=== PATIENT | female | born 1970 | race Caucasian/White ===

== ENCOUNTER → 2019-08-12 12:59 | Outpatient (CLI) | payer BC, SELFPAY ==
--- NOTE | ~2019-08-12 | US_ITS ---
EXAMINATION: US transvaginal DATE: 08/12/2019 13:43 INDICATION: Check IUD positioning. Misplaced IUD. Comparison:No prior studies for comparison. TECHNIQUE: Multiple transabdominal and endovaginal sonographic images of the pelvis performed. FINDINGS: The uterus measures 7.8 x 4.1 x 5.9 cm. IUD in expected position in the endometrium. The en dometrial complex measures 9 mm. The right ovary is not visualized. Left ovary contains a 2.4 cm cyst. There is no free fluid in the pelvis. There are no abnormal masses seen on either side. IMPRESSION: 1. IUD in expected position in the endometrium. 2: 2.4 cm left ovarian cyst. Reviewed, dictated and finalized at location A. 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
== END ==
PROVIDERS: Visit Provider Obstetrics & Gynecology
DX: T83.32XA Displacement of intrauterine contraceptive device, initial encounter (principal); Z30.431 Encounter for routine checking of intrauterine contraceptive device; N83.202 Unspecified ovarian cyst, left side
CPT/HCPCS: 76830

== ENCOUNTER 2021-12-04 11:06 | Outpatient (CLI) | payer BC, SELFPAY ==
[2021-12-04 11:34] LABS: Hematocrit 38.7 % (37.0-47.0); Mean Corpuscular HGB Conc 33.6 g/dl (32-36); Mean Corpuscular Volume 98.2 fl (80-100); Mean Platelet Volume 9.8 fl (7.4-10.4); Platelet Count Result 184 k/mm3 (150-375); Red Blood Count 3.94 M/mm3 (4.2-5.4); Red Cell Distribution Width 12.7 % (11.5-14.5); White Blood Count 3.7 K/mm3 (4.5-10.0)
[2021-12-04 11:51] LABS: Albumin Level 4.3 g/dL (3.5-5.1); Anion Gap 4 mmol/L (8-16); Blood Urea Nitrogen 15 mg/dL (7-17); Carbon Dioxide 28 mmol/L (22-30); Chloride 107 mmol/L (98-107); Estimated Glomerular Filt Rate > 60; Glucose 81 mg/dL (65-110); Potassium 4.1 mmol/L (3.4-5.0); Sodium 139 mmol/L (137-145)
[2021-12-04 11:59] LABS: Prealbumin 34.8 mg/dL (17.6-36.0)
[2021-12-04 13:04] LABS: Iron 152 ug/dL (37-170)
== END 2021-12-04 11:07 | disposition home or self-care (01) ==
LOC: ANHLAB 11:08
PROVIDERS: Visit Provider Surgery Plastic and Reconstructive Surgery
DX: Z01.818 Encounter for other preprocedural examination (principal)
CPT/HCPCS: 36415; 80048; 82040; 83540; 84134; 85027

== ENCOUNTER 2021-12-19 00:39 | Day surgery (SDC) | payer BC, SELFPAY ==
[2021-12-12 14:36] VITALS: BMI 39.2
--- NOTE | 2021-12-12 14:42 | PC.NURSE ---
Report to the Outpatient Waiting Room, entrance under the green pavilion located off [facility], at time __07:00AM on date ___[id number]____. OR Time: __09:00AM . - You and your visitor will be asked a series of questions to screen for COVID 19 for your protection. - Only one visitor is allowed at this time. - The patient visitor is requested to leave or wait in car when not with patient. - A mask is required within the hospital. Patients may have clear liquids (water, carbonated beverages, clear teas, apple juice) until 3 hours prior to surgery with a maximum of 20 ounces. - No food from midnight until time of surgery - Infants may have breast milk until 4 hours before surgery, formula 6 hours prior to surgery. - Children will be allowed to drink immediately following surgery. If applicable, please bring a bottle or sippy cup to assist with drinking. Juice, water, soda, and popsicles are readily available. For infants on formula, please bring formula the day of surgery. Pacifiers are allowed. Take the following medications with a SIP of water the morning of surgery: FLUOXETINE NEEDED Medications to discontinue per physician N/A Date to take last dose Please no make-up, nail malay, hairspray, perfume, deodorant, or body powder the day of surgery. No jewelry (including any body piercings) or valuables the day of surgery, leave them at home. Please take a shower or bath the night before, or the morning of, surgery with an antibacterial soap. Wear comfortable, loose fitting clothing. Children are encouraged to wear pajamas. - Jewelry must be removed prior to entering the operating room. Rings and piercings that are not removed may be cut off. - The hospital will not accept responsibility for valuables. - Please leave all valuables, including medications, at home the day of surgery. If you are going home after surgery, a licensed hook up driver must drive you home. - NO public transportation without another adult. - We recommend that an adult stay with you for 24 hours following discharge. - We also recommend that you do not drive, make important decision, drink alcoholic beverages, or take any drugs that were not prescribed by your health care provider for at least 24 hours after your discharge time. For Pediatric surgeries, we recommend two adults accompany the child home (only one inside the building at this time). Follow any additional instructions given to you from your surgeon. If you or anyone in your household have experienced Covid symptoms in the past week, please notify your surgeon or the nurse liaison at the phone number below for possible testing. Telephone instructions given to ____PATIENT and asked if any additional questions and then verbalized understanding. Patient advised to call surgeon office or pre surgery nurse liaison [phone] if any additional questions.
[2021-12-19] VITALS (10 sets, daily range): BP systolic 103–134; BP diastolic 51–85; PULSE 65–111; RESP 14–20; TEMP 36.4–37.6; O2SAT 98–100; BMI 39.2
--- NOTE | 2021-12-19 07:43 | WPDANESEPPF ---
Anes - Initial Pre Proc Eval Procedure: Operation Date: 12/19/21 09:00 Proposed Procedures p Bilateral Breast Reduction - Warren Nathan MD Date/Time: 12/19/21 07:43 Surgeon: Warren Nathan MD Pre Op Diagnosis: macromastia Patient Data Age: 51 Gender: F Height: 1.65 m Weight: 107 kg Last Vital Signs Temp 36.4 C L 12/19/21 07:24 Pulse 65 12/19/21 07:24 Resp 16 12/19/21 07:24 BP 127/85 12/19/21 07:24 Pulse Ox 100 12/19/21 07:24 O2 Del Method Room Air 12/19/21 07:24 Allergies Allergy/AdvReac Type Severity Reaction Status Date / Time cefuroxime [From Ceftin] AdvReac Unknown Rash Verified 12/19/21 07:15 NSAIDS (Non-Steroidal AdvReac Unknown Other Verified 12/19/21 07:15 Anti-Inflamma Sulfa (Sulfonamide AdvReac Unknown Unknown Verified 12/19/21 07:15 Antibiotics) Home Medications Medication Instructions Recorded Confirmed Type cholecalciferol (vitamin D3) 50,000 units PO WEEKLY 07/22/21 12/19/21 History fluoxetine 10 mg capsule 10 mg PO DAILY PRN Anxiety 07/22/21 12/19/21 History pantoprazole [Protonix] 40 mg PO DAILY 07/22/21 12/19/21 History docusate sodium 100 mg capsule 100 mg PO DAILY #14 caps 12/05/21 Rx (Colace) ondansetron HCl 4 mg tablet 4 mg PO Q8H #21 tabs 12/05/21 Rx hydrocodone 5 mg-acetaminophen 325 1 tablet PO Q6H PRN pain #30 tabs 12/06/21 12/06/21 Rx mg tablet alprazolam 0.25 mg tablet 1 tablet PO HS 12/12/21 12/19/21 History Laboratory Tests 12/19/21 07:21 Cotinine Pending Patient hx anesthesia problems: none Family hx anesthesia problems: none Results Review: All pre-operative results and documents have been reviewed as part of the pre-operative evaluation. [facility] Surgical History Surgical History History of gastric bypass Family History Family History Mother Arthritis, rheumatoid Sibling Thyroid cancer Diabetes mellitus Social History Social History Smoking packs per day: 0.5 Smoking cigarettes per day: 10.0 Years smoked: 15 Smoking pack-years: 7.50 Smoking status: Former smoker Tobacco type: cigarettes Second hand tobacco smoke exposure: Yes Smoking end date: 10/20/21 Alcohol intake: current Drinks per week: 7 Alcohol use details: WINE Substance use: never Living arrangements: alone Spiritual care concerns: No Anes - Eval Final PreProcedure Day of Procedure 12/19/21 07:43 Patient weight: obese Heart: regular rate and rhythm Lungs: clear to auscultation Airway: Mallampati scale class 1 Neurological: alert and oriented ASA classification: III Emergent: no Anesthetic plan: proceed Anesthesia type and monitoring: general ETT and standard monitoring Results Review: All pre-operative results and documents have been reviewed as part of the pre-operative evaluation. Informed Consent: The patient's anesthetic plan and its attendant risks and benefits were discussed with the patient/family/POA. Questions were solicited and answers provided to the satisfaction of the patient/family/POA.
[2021-12-19] MEDS: LACTATED RINGERS 1,000 ML 30 ML IV CONT ×2 (07:44→11:56)
--- NOTE | 2021-12-19 07:44 | SUR.PREOP ---
STARTED 500CC IVF BOLUS PER ORDER
[2021-12-19 07:57] LABS: Urine Cotinine NEGATIVE
--- NOTE | 2021-12-19 08:25 | WPDHPUPDATE1 ---
History and Physical Update Update Date/Time: 12/19/21 08:25 History and Physical has been reviewed, including an updated exam of the patient. There are NO changes in the patient's condition. Risks, benefits, and alternatives have been discussed and questions answered. Patient agrees to proceed with procedure.
--- NOTE | 2021-12-19 08:41 | SUR.PREOP ---
[email or web address]
[2021-12-19] MEDS: LACTATED RINGERS IRRIG 1,000 ML, LIDOCAINE HCL 1% LOCAL INJ 50 ML, EPINEPHrine HCL INJ ... INFILTRATE (08:56)
[2021-12-19] MEDS: ceFAZolin 2 GM/D5W 50 ML 2 GM/50 ML BAG IVPB (08:56)
[2021-12-19] MEDS: TRANEXAMIC ACID 1,000MG/ISO100 1,000 MG/100 ML BAG 200 MG IVPB (09:00)
--- NOTE | 2021-12-19 12:02 | W.PM.PROC2 ---
Procedure Note - Detailed Date of Procedure 12/19/21 Pre-op Diagnosis macromastia Post-op Diagnosis Same Procedure Performed Bilateral reduction mammaplasty Surgeon Warren Nathan MD Findings Inverted T Superior medial pedicle Tissue removed: Right - 1362 grams Left - 1213 grams Description of Procedure She is here today for bilateral breast reduction. Previously and again today the risks, benefits, alternatives were discussed in extensive detail. I wanted her to be very realistic about the risks involved as well as expectations. We discussed aftercare and what to monitor for. She understands we can never guarantee final breast size and there will always be asymmetry. I was very upfront and honest about the risks of sensation change and even nipple loss (). Made sure answered all of her questions to her satisfaction today and consent was obtained. She was marked in the preoperative holding area with their verification. The patient was taken to the operating room placed supine on the operating table. Anesthesia was provided by anesthesiology. She was prepped and draped in a standard sterile fashion. A surgical time-out was taken. Stab incisions were made and I tumessed with a tumescent solution. I marked out the nipple-areolar complex at 42 mm. I then de-epithelialized the pedicle. The pedicle was well left well more than 2 cm in thickness. I then removed the inferior portion of the breast as well as the central keel to get shape based on preoperative planning. At this point copiously irrigated with saline solution and verified a strict hemostasis. I reapproximated the pillars using a 2-0 PDS. I tailor tacked the breast into place with tessie. She was placed in a sitting position. I verified the nipple-areolar complex position based on preoperative markings, intraoperative measurements, and observation which were in full agreement. For symmetry 5mm basket cannula was used based on S.A.F[employer]E. liposuction techniques to a rolling pinch test bilateral lateral breast. This nipple-areolar complex was marked at 42 mm in size. I then placed supine and de-epithelialized this. Nipple-areolar complex was inset with 3-0 Monocryl. I closed IMF deep with 1 strattafix. I closed the vertical incision with 3-0 Monocryl in the IMF with 3-0 stratafix. Then everything was closed using a running subcuticular 4-0 Monocryl followed by Steri-Strips. A dressing was placed followed by surgical bra. Patient was awoke and taken to PACU without difficulty. All instrument sponge counts were correct at the end of the case. Estimated Blood Loss 75 Drains No Packing No Pathology Yes (Bilateral breast tissue) Complications No immediate complications Condition Stable Disposition PACU
[2021-12-19] MEDS: fentaNYL CITRATE INJ (*CRX) 100 MCG/2 ML VIAL 25 MCG IV PUSH ×2 (12:25→12:34)
[2021-12-19] MEDS: oxyCODONE HCL (*CRX) 5 MG TAB IR PO (13:02)
[2021-12-19] MEDS: FAMOTIDINE 20 MG/2 ML VIAL IV PUSH (14:09)
== END 2021-12-19 14:45 | disposition home or self-care (01) ==
PROVIDERS: PCP Family Medicine; Visit Provider Surgery Plastic and Reconstructive Surgery
PROC: 0HBV0ZZ Excision of Bilateral Breast, Open Approach (ICD-10-PCS; CPT 19318; principal; 2021-12-19 09:00)
DX: N62 Hypertrophy of breast (principal); N60.32 Fibrosclerosis of left breast; N60.31 Fibrosclerosis of right breast; Z98.84 Bariatric surgery status; Z87.891 Personal history of nicotine dependence; Z79.899 Other long term (current) drug therapy; E66.9 Obesity, unspecified; Z68.39 Body mass index [BMI] 39.0-39.9, adult
CPT/HCPCS: 19318; 80307; 88305; A9270; J0131; J0171; J0690; J1100; J1170; J2250; J2405; J2704; J2710; J3010; J7120

== ENCOUNTER → 2022-04-14 12:45 | Outpatient (CLI) | payer BC, SELFPAY ==
--- NOTE | ~2022-04-14 | US_ITS ---
EXAMINATION: US transvaginal DATE: 04/14/2022 13:38 INDICATION: Pelvic and perineal pain TECHNIQUE: Multiple endovaginal sonographic images of the pelvis were obtained. COMPARISON: 08/12/2019 FINDINGS: The uterus measures 6.0 x 4.3 x 4.4 cm. The endometrial complex measures 5 mm. The IUD appe ars to be in expected position. The right ovary is not visualized however no right adnexal abnormalit y is seen. The left ovary measures 4.1 x 2.3 x 3.9 cm. There is normal vascular flow in the left ovar y. There is no free fluid in the pelvis. IMPRESSION: 1. No sonographic correlate for the patient's symptoms. Reviewed, dictated and finalized at location A.
== END ==
PROVIDERS: PCP Family Medicine; Visit Provider Nurse Practitioner
DX: R10.2 Pelvic and perineal pain (principal)
CPT/HCPCS: 76830

== ENCOUNTER → 2022-12-04 09:10 | Outpatient (CLI) | payer BC, SELFPAY ==
--- NOTE | ~2022-12-04 | MMUS_ITS ---
EXAMINATION: MM diagnostic césar BI w carrie, US breast BI complete HISTORY: 3 ALONG the left breast scar 3-6:00, felt by patient's and breast reduction surgery. TECHNIQUE: Full-field and spot ML, MLO and CC 3-D tomosynthesis images of both breasts were performed and synthetic 2-D images were generated. CAD analysis was submitted and interpreted. High resolution complete bilateral breast ultrasound examination including all 4 quadrants and subareolar areas was performed. COMPARISON: None BREAST PARENCHYMAL COMPOSITION: There are scattered areas of fibroglandular density. FINDINGS: MAMMOGRAPHIC FINDINGS: There is bilateral mammographic asymmetry. There is evidence of focal fat necrosis in the lower mid l eft breast. The findings are likely due to bilateral reduction mammoplasty. Occasional benign calcifications. No suspicious mass or calcification, skin thickening or retraction is detected. ULTRASOUND: Right breast: 11:00 5 cm from nipple: Simple cyst measuring 5.5 x 9 x 12 mm Left breast: At 5:00 area near scar 7 cm from nipple: Oval parallel circumscribed complicated cyst wi th through transmission posterior enhancement; this measures up to 13 x 6 x 16 mm. No abnormal product management internship al vascularity. 12:00 subareolar area: Parallel circumscribed hypoechoic 4.8 x 5.7 x 5.9 mm lesion without internal v ascularity or posterior shadowing, benign in appearance IMPRESSION: 1. Status post bilateral reduction mammoplasty; benign mammographic sonographic findings 2. Routine annual mammographic screening is recommended BI-RADS Category 2: Benign finding(s). Reviewed, dictated and finalized at location A. IMPRESSION: 1. Status post bilateral reduction mammoplasty; benign mammographic sonographic findings 2. Routine annual mammographic screening is recommended BI-RADS Category 2: Benign finding(s).
== END ==
PROVIDERS: PCP Nurse Practitioner; Visit Provider Nurse Practitioner
DX: N63.20 Unspecified lump in the left breast, unspecified quadrant (principal); N60.01 Solitary cyst of right breast
CPT/HCPCS: 76641; 77062; 77066; G0279